=== PATIENT | male | born 1935 | race Caucasian/White ===

== ENCOUNTER → 2016-12-10 | Outpatient (CLI) | payer OTHER | LOC: US 12-07 10:45 | DX: N18.3 Chronic kidney disease, stage 3 (moderate) (principal); N28.1 Cyst of kidney, acquired ==

== ENCOUNTER → 2021-02-06 | Outpatient (CLI) | payer OTHER ==
[~2021-02-06] MED LIST: ACETAMINOPHEN-1 EAC1 PO; AMLODIPINE BESYL5 MG PO; ASPIRIN CHEWABL81 MG PO; CEFPODOXIME PR200 MG PO; COLACE100 MG PO; CRESTOR5 MG PO; DULOXETINE HCL60 MG PO; FEBUXOSTAT40 MG PO; FLOMAX 0.4 MG0.4 MG PO; FOLIC ACID 1 MG1 MG PO; LEVOTHYROXINE125 MCG PO; LIORESAL TAB 1010 MG PO; LOPRESSOR 50 MG50 MG PO; LYRICA100 MG PO; MULTIVITAMINS1 EAC1 PO; VITAMIN D31250 MCG PO
== END ==
LOC: US 02-02 15:30
DX: C85.80 Other specified types of non-Hodgkin lymphoma, unspecified site (principal); M79.662 Pain in left lower leg; M79.89 Other specified soft tissue disorders
CPT/HCPCS: 93971

== ENCOUNTER → 2021-03-16 | Outpatient (CLI) | payer OTHER | LOC: WCC 13:00 | DX: L97.821 Non-pressure chronic ulcer of other part of left lower leg limited to breakdown of skin (principal); I48.91 Unspecified atrial fibrillation; R60.0 Localized edema; M79.661 Pain in right lower leg; M79.662 Pain in left lower leg; M21.371 Foot drop, right foot; M21.372 Foot drop, left foot; R26.2 Difficulty in walking, not elsewhere classified; I25.10 Atherosclerotic heart disease of native coronary artery without angina pectoris; I73.9 Peripheral vascular disease, unspecified; N18.6 End stage renal disease | CPT/HCPCS: 97597; G0463 ==

== ENCOUNTER → 2021-03-29 | Outpatient (CLI) | payer OTHER | LOC: WCC 10:04 | DX: I87.2 Venous insufficiency (chronic) (peripheral) (principal); L97.921 Non-pressure chronic ulcer of unspecified part of left lower leg limited to breakdown of skin; I25.10 Atherosclerotic heart disease of native coronary artery without angina pectoris; I73.9 Peripheral vascular disease, unspecified; N18.6 End stage renal disease | CPT/HCPCS: 97597 ==

== ENCOUNTER → 2021-04-05 | Outpatient (CLI) | payer OTHER | LOC: HEART 5 12:49 → EXRD 14:00 | DX: L97.821 Non-pressure chronic ulcer of other part of left lower leg limited to breakdown of skin (principal); R60.0 Localized edema; I73.9 Peripheral vascular disease, unspecified; I48.91 Unspecified atrial fibrillation; M79.661 Pain in right lower leg; M79.662 Pain in left lower leg; M21.371 Foot drop, right foot; M21.372 Foot drop, left foot; R26.2 Difficulty in walking, not elsewhere classified; I25.10 Atherosclerotic heart disease of native coronary artery without angina pectoris; N18.6 End stage renal disease; R93.6 Abnormal findings on diagnostic imaging of limbs | CPT/HCPCS: 93925; 93970 ==

== ENCOUNTER → 2021-04-12 | Outpatient (CLI) | payer OTHER | LOC: WCC 14:00 | DX: L97.801 Non-pressure chronic ulcer of other part of unspecified lower leg limited to breakdown of skin (principal); I48.91 Unspecified atrial fibrillation; R60.0 Localized edema; M79.661 Pain in right lower leg; M79.662 Pain in left lower leg; M21.371 Foot drop, right foot; M21.372 Foot drop, left foot; R26.2 Difficulty in walking, not elsewhere classified; I25.10 Atherosclerotic heart disease of native coronary artery without angina pectoris; I73.9 Peripheral vascular disease, unspecified; N18.6 End stage renal disease; I25.2 Old myocardial infarction; Z95.820 Peripheral vascular angioplasty status with implants and grafts | CPT/HCPCS: 97597; 97598 ==

== ENCOUNTER → 2021-04-26 | Outpatient (CLI) | payer OTHER | END | disposition home or self-care (01) | LOC: WCC 13:30 | PROC: 0JBP0ZZ Excision of Left Lower Leg Subcutaneous Tissue and Fascia, Open Approach (ICD-10-PCS; principal; 2021-04-26) | DX: L97.822 Non-pressure chronic ulcer of other part of left lower leg with fat layer exposed (principal); I87.2 Venous insufficiency (chronic) (peripheral); I73.9 Peripheral vascular disease, unspecified; I25.2 Old myocardial infarction; M19.90 Unspecified osteoarthritis, unspecified site; I48.91 Unspecified atrial fibrillation; M21.372 Foot drop, left foot; M21.371 Foot drop, right foot; I25.10 Atherosclerotic heart disease of native coronary artery without angina pectoris; N18.6 End stage renal disease; Z91.041 Radiographic dye allergy status; Z79.1 Long term (current) use of non-steroidal anti-inflammatories (NSAID); Z79.899 Other long term (current) drug therapy; Z79.890 Hormone replacement therapy ==

== ENCOUNTER → 2021-05-10 | Outpatient (CLI) | payer OTHER | LOC: WCC 13:29 | DX: I87.2 Venous insufficiency (chronic) (peripheral) (principal); L97.922 Non-pressure chronic ulcer of unspecified part of left lower leg with fat layer exposed; I48.91 Unspecified atrial fibrillation; I25.10 Atherosclerotic heart disease of native coronary artery without angina pectoris; I73.9 Peripheral vascular disease, unspecified; N18.6 End stage renal disease; I89.0 Lymphedema, not elsewhere classified; M21.371 Foot drop, right foot; R60.0 Localized edema; M21.372 Foot drop, left foot; R26.2 Difficulty in walking, not elsewhere classified; Z91.02 Food additives allergy status; Z79.899 Other long term (current) drug therapy ==

== ENCOUNTER → 2021-05-29 | Outpatient (CLI) | payer OTHER | LOC: WCC 09:22 | DX: I87.2 Venous insufficiency (chronic) (peripheral) (principal); L97.822 Non-pressure chronic ulcer of other part of left lower leg with fat layer exposed; I25.2 Old myocardial infarction; N18.6 End stage renal disease; I73.9 Peripheral vascular disease, unspecified; L97.801 Non-pressure chronic ulcer of other part of unspecified lower leg limited to breakdown of skin; I48.91 Unspecified atrial fibrillation; I89.0 Lymphedema, not elsewhere classified; R60.0 Localized edema; M79.661 Pain in right lower leg; M79.662 Pain in left lower leg; M21.371 Foot drop, right foot; M21.372 Foot drop, left foot; I25.10 Atherosclerotic heart disease of native coronary artery without angina pectoris; R26.2 Difficulty in walking, not elsewhere classified; Z91.09 Other allergy status, other than to drugs and biological substances ==

== ENCOUNTER → 2021-06-19 | Outpatient (CLI) | payer OTHER | LOC: WCC 13:36 | DX: I87.2 Venous insufficiency (chronic) (peripheral) (principal); L97.922 Non-pressure chronic ulcer of unspecified part of left lower leg with fat layer exposed; I73.9 Peripheral vascular disease, unspecified; M21.371 Foot drop, right foot; M21.372 Foot drop, left foot; I25.10 Atherosclerotic heart disease of native coronary artery without angina pectoris; N18.6 End stage renal disease; I89.0 Lymphedema, not elsewhere classified; I48.91 Unspecified atrial fibrillation; I25.3 Aneurysm of heart; M19.90 Unspecified osteoarthritis, unspecified site ==

== ENCOUNTER → 2021-07-03 | Outpatient (CLI) | payer OTHER | LOC: WCC 11:13 | DX: I87.2 Venous insufficiency (chronic) (peripheral) (principal); L97.821 Non-pressure chronic ulcer of other part of left lower leg limited to breakdown of skin; I48.91 Unspecified atrial fibrillation; I25.2 Old myocardial infarction; N18.6 End stage renal disease; Z95.828 Presence of other vascular implants and grafts; I25.10 Atherosclerotic heart disease of native coronary artery without angina pectoris; I89.0 Lymphedema, not elsewhere classified; R60.0 Localized edema; M79.661 Pain in right lower leg; M79.662 Pain in left lower leg; M21.371 Foot drop, right foot; M21.372 Foot drop, left foot ==

== ENCOUNTER → 2021-07-17 | Outpatient (CLI) | payer OTHER | LOC: WCC 11:17 | DX: L97.801 Non-pressure chronic ulcer of other part of unspecified lower leg limited to breakdown of skin (principal); I73.9 Peripheral vascular disease, unspecified; I25.10 Atherosclerotic heart disease of native coronary artery without angina pectoris; I48.91 Unspecified atrial fibrillation; N18.6 End stage renal disease; I89.0 Lymphedema, not elsewhere classified; M21.372 Foot drop, left foot; M21.371 Foot drop, right foot | CPT/HCPCS: 97597 ==

== ENCOUNTER → 2021-07-31 | Outpatient (CLI) | payer OTHER | LOC: WCC 08:20 | DX: Z09 Encounter for follow-up examination after completed treatment for conditions other than malignant neoplasm (principal); I48.91 Unspecified atrial fibrillation; R60.0 Localized edema; M21.372 Foot drop, left foot; M21.371 Foot drop, right foot; M79.662 Pain in left lower leg; M79.661 Pain in right lower leg; R26.2 Difficulty in walking, not elsewhere classified; I73.9 Peripheral vascular disease, unspecified; N18.6 End stage renal disease; I89.0 Lymphedema, not elsewhere classified; I25.2 Old myocardial infarction; Z95.820 Peripheral vascular angioplasty status with implants and grafts | CPT/HCPCS: G0463 ==